=== PATIENT | male | born 1965 | race Hispanic/Latino ===

== ENCOUNTER 2020-10-29 18:26 | Emergency (ER) | payer SELFPAY ==
[2020-10-29 19:30] VITALS: BP 133/76
[2020-10-29] MEDS ORDERED: HYDROcodone/ACETAMINOPHEN 5-325 MG TAB PO ONE ×2 (19:38→23:00)
[2020-10-29] MEDS ORDERED: ONDANSETRON 4 MG ODT TAB PO ONE ×2 (19:38→23:00)
[2020-10-29] MEDS ORDERED: KETOROLAC 10 MG TAB PO ONE ×2 (19:38→23:00)
--- NOTE | 2020-10-29 19:47 | Emergency Department Report ---
ED Male HPI - General Chief complaint: Urogenital-Male Stated complaint: BACK PAIN, PAINFUL URINATION Source: patient Mode of arrival: Ambulatory Limitations: No Limitations - History of Present Illness Initial comments: Patient is a 55-year-old white male with a history of kidney stones who presents to the ED with complaint of acute onset persistent right flank pain that ra diates to the right lower quadrant and right inguinal area for the last 3 days, worse in the last 2 days. Patient states that he has also been having persistent dysuria and urinary frequency and urgency. Patient also complains of diarrhea for the last 3 days. Patient denies hematuria, nausea, vomiting, fever, chills, cough, chest pain or shortness of breath, low back pain, testicular pain or penile discharge. MD Complaint: dysuria, other (Right flank pain) -: Sudden, days(s) (3) Location: penis, right inguinal region, right flank Radiation: other (Right flank and low back) Severity: severe Severity scale (0 -10): 8 Quality: aching, sharp Consistency: constant Improves with: none Worsens with: urination denies other symptoms, dysuria, other (Right flank pain). denies: discharge, swelling, mass, rash, urinary retention, blood in urine, fever, nausea/vomiting, incontinence - Related Data Sexually active: Yes Previous Rx's Medication Instructions Recorded Last Taken Type Ketorolac [Toradol] 10 mg PO Q8H PRN #20 tablet 10/29/20 Unknown Rx Ondansetron [Zofran Odt] 4 mg PO Q6HR PRN #20 tab.rapdis 10/29/20 Unknown Rx Tamsulosin [Flomax] 0.4 mg PO QDAY #10 cap 10/29/20 Unknown Rx levoFLOXacin [Levaquin TAB] 500 mg PO QDAY #10 tablet 10/29/20 Unknown Rx oxyCODONE /ACETAMINOPHEN [Percocet 1 tab PO Q6HR PRN #12 tablet 10/29/20 Unknown Rx 5/325] Allergies Allergy/AdvReac Type Severity Reaction Status Date / Time No Known Allergies Allergy Unverified 10/29/20 19:29 ED Review of Systems ROS: Stated complaint: BACK PAIN, PAINFUL URINATION Other details as noted in HPI Constitutional: denies: chills, fever Eyes: denies: eye pain, eye discharge, vision change ENT: denies: ear pain, throat pain Respiratory: denies: cough, shortness of breath, wheezing Cardiovascular: denies: chest pain, palpitations Endocrine: no symptoms reported Gastrointestinal: abdominal pain (Right flank pain), diarrhea. denies: nausea, vomiting Genitourinary: urgency, dysuria, frequency Musculoskeletal: denies: back pain, joint swelling, arthralgia Skin: denies: rash, lesions Neurological: denies: headache, weakness, paresthesias Psychiatric: denies: anxiety, depression Hematological/Lymphatic: denies: easy bleeding, easy bruising ED Past Medical Hx - Past Medical History Previous Medical History?: Yes Hx Kidney Stones: Yes - Surgical History Past Surgical History?: Yes Additional Surgical History: Left knee ACL, Right shoulder, Lower back - Social History Smoking Status: Never Smoker Substance Use Type: Alcohol - Medications Home Medications: Home Medications Medication Instructions Recorded Confirmed Last Taken Type Ketorolac [Toradol] 10 mg PO Q8H PRN #20 tablet 10/29/20 Unknown Rx Ondansetron [Zofran Odt] 4 mg PO Q6HR PRN #20 tab.rapdis 10/29/20 Unknown Rx Tamsulosin [Flomax] 0.4 mg PO QDAY #10 cap 10/29/20 Unknown Rx levoFLOXacin [Levaquin TAB] 500 mg PO QDAY #10 tablet 10/29/20 Unknown Rx oxyCODONE /ACETAMINOPHEN [Percocet 1 tab PO Q6HR PRN #12 tablet 10/29/20 Unknown Rx 5/325] ED Physical Exam - General Limitations: No Limitations General appearance: alert, in no apparent distress - Head Head exam: Present: atraumatic, normocephalic, normal inspection - Eye Eye exam: Present: normal appearance, PERRL, EOMI Pupils: Present: normal accommodation - ENT ENT exam: Present: normal exam, normal orophraynx, mucous membranes moist, TM's normal bilaterally, normal external ear exam - Neck Neck exam: Present: normal inspection, full ROM - Respiratory Respiratory exam: Present: normal lung sounds bilaterally. Absent: respiratory distress, wheezes, rales, rhonchi, chest wall tenderness, accessory muscle use, decreased breath sounds - Cardiovascular Cardiovascular Exam: Present: regular rate, normal rhythm, normal heart sounds. Absent: systolic murmur, diastolic murmur, rubs, gallop - GI/Abdominal GI/Abdominal exam: Present: soft, tenderness (Palpable right flank tenderness), normal bowel sounds. Absent: guarding, rebound, hyperactive bowel sounds, hypoactive bowel sounds - Extremities Exam Extremities exam: Present: normal inspection, full ROM, normal capillary refill - Back Exam Back exam: Present: normal inspection, full ROM, CVA tenderness (R) (Right CVA tenderness). Absent: tenderness, CVA tenderness (L), muscle spasm, paraspinal tenderness, vertebral tenderness - Neurological Exam Neurological exam: Present: alert, oriented X3, CN II-XII intact, normal gait, reflexes normal - Psychiatric Psychiatric exam: Present: normal affect, normal mood - Skin Skin exam: Present: warm, dry, intact, normal color. Absent: rash ED Course Vital Signs 10/29/20 19:25 Temperature 98.6 F Pulse Rate 74 Respiratory 20 Rate Blood Pressure 133/76 O2 Sat by Pulse 96 Oximetry ED Medical Decision Making - Lab Data Result diagrams: 10/29/20 19:42 10/29/20 19:42 - Radiology Data Radiology results: report reviewed, image reviewed [place] [id number] Cat Scan Report Signed Patient: KRISH STEWART MR#: [id number] : 1965 Acct:[id number] Age/Sex: 55 / M ADM Date: 10/29/20 Loc: ED Attending Dr: Ordering Physician: RUSTY MARTINEZ Date of Service: 10/29/20 Procedure(s): CT abdomen pelvis wo con Accession Number(s): [id number] cc: RUSTY MARTINEZ CT ABDOMEN AND PELVIS WITHOUT CONTRAST INDICATION / CLINICAL INFORMATION: right flank pain. TECHNIQUE: Axial CT images were obtained through the abdomen and pelvis without IV contrast. All CT scans at this location are performed using CT dose reduction for ALARA by means of automated exposure control. COMPARISON: None available. FINDINGS: FINDINGS: LOWER CHEST: No significant abnormality LIVER: Hepatic steatosis. GALLBLADDER/BILIARY TREE: No significant abnormality PANCREAS: No significant abnormality SPLEEN: No significant abnormality ADRENALS: No significant abnormality KIDNEYS / URETER: 2 adjacent stones in the distal right ureter, measuring 5 mm and 3 mm. There is mild right hydronephrosis with asymmetric perinephric and periureteral stranding. There are at least 3 additional punctate stones in the right kidney and 1-2 mm stone in the upper to midpole of the left kidney. No ureteral calculus or hydronephrosis on the left. URINARY BLADDER: No significant abnormality REPRODUCTIVE ORGANS: No significant abnormality STOMACH / BOWEL: No significant abnormality. The appendix is normal in caliber. LYMPH NODES: No significant adenopathy. VASCULATURE: No significant abnormality. OTHER: No free air, free fluid, or focal fluid collection is identified. SKELETAL SYSTEM: No acute osseous findings. IMPRESSION: 1. 2 adjacent distal right ureteral stones, measuring 5 mm and 3 mm, with mild obstructive uropathy. 2. Additional punctate bilateral nephrolithiasis. No ureteral calculus or hydronephrosis on the left. Signer Name: Keesha Vu MD Signed: 10/29/2020 8:39 PM Workstation Name: [id number] Transcribed By: MAGGY Dictated By: KEESHA VU MD Electronically Authenticated By: KEESHA VU MD Signed Date/Time: 10/29/202038 DD/ 35 TD/TT: - Medical Decision Making This is a 55-year-old white male with a history of kidney stones who presents to the ED with complaint of acute onset persistent right flank pain that radiates to the right lower quadrant and right inguinal area for the last 3 days, worse in the last 2 days. Patient states that he has also been having persistent dysuria and urinary frequency and urgency. Patient also complains of diarrhea for the last 3 days. In the ED, patient is alert and oriented x3 and is not in any distress. Patient was treated for pain in the ED and also given antiemetics. Patient is hemodynamically stable. Lab test results were reviewed and are all nonactionable except for urinalysis that showed urinary tract infection with a positive nitrites. There is however no blood noticeable in urinalysis. The abdomen pelvis CT scan without contrast showed 2 adjacent distal right ureteral stones, measuring 5 mm and 3 mm, with mild obstructive uropathy. Additional punctate bilateral nephrolithiasis. No ureteral calculus or hydronephrosis on the left. On reevaluation, patient's pain is well controlled medications. Patient was discharged home on medications including antibiotics and pain medications and was advised to follow-up with his urologist in 5 to 7 days for reevaluation. Patient was advised return to the ED immediately if symptoms get worse. - Differential Diagnosis Kidney stones; UTI; pyelonephritis; appendicitis Critical care attestation.: If time is entered above; I have spent that time in minutes in the direct care of this critically ill patient, excluding procedure time. ED Disposition Clinical Impression: Acute abdominal pain in right flank, Dysuria, Acute urinary tract infection, Kidney stone on right side Disposition: TO HOME OR SELFCARE Is pt being admited?: No Does the pt Need Aspirin: No Condition: Stable Instructions: Kidney Stones, [id number], Flank Pain, Adult, [id number], Abdominal Pain, Adult, [id number], Urinary Tract Infection, Adult, [id number] Additional Instructions: All lab test results were reviewed and are all nonactionable except for urinalysis that showed significant urinary tract infection. The abdomen pelvis CT scan without contrast showed 2 adjacent distal right ureteral stones, measuring 5 mm and 3 mm, with mild obstructive uropathy. There are no kidney stones on the left kidney. Therefore take medications with food, drink plenty of fluids and follow-up with your primary care physician or urologist in 5 to 7 days for reevaluation. Return to the ED immediately if symptoms get worse. Prescriptions: Tamsulosin [Flomax] 0.4 mg PO QDAY #10 cap levoFLOXacin [Levaquin TAB] 500 mg PO QDAY #10 tablet oxyCODONE /ACETAMINOPHEN [Percocet 5/325] 1 tab PO Q6HR PRN #12 tablet PRN Reason: Pain Ketorolac [Toradol] 10 mg PO Q8H PRN #20 tablet PRN Reason: Pain Ondansetron [Zofran Odt] 4 mg PO Q6HR PRN #20 tab.rapdis PRN Reason: Nausea Referrals: ALEISHA MOULTON MD [Staff Physician] - 3-5 Days Time of Disposition: 21:37 Print Language: LAO
[2020-10-29 20:02] LABS: Basophils % (Auto) 0.5 % (0.0-1.8); Eosinophils # (Auto) 0.2 K/mm3 (0.0-0.4); Eosinophils % (Auto) 2.3 % (0.0-4.3); Hematocrit 42.4 % (35.5-45.6); Hemoglobin 14.2 gm/dl (11.8-15.2); Lymphocytes # (Auto) 1.3 K/mm3 (1.2-5.4); Lymphocytes % (Auto) 14.6 % (13.4-35.0); Mean Corpuscular HGB Conc 34 % (32-34); Mean Corpuscular Volume 88 fl (84-94); Monocytes # (Auto) 0.8 K/mm3 (0.0-0.8); Monocytes % (Auto) 8.7 % (0.0-7.3); Platelet Count 178 K/mm3 (140-440); Red Blood Count 4.82 M/mm3 (3.65-5.03); Red Cell Distribution Width 13.8 % (13.2-15.2)
[2020-10-29 20:05] LABS: Bacteria,Urine 1+ /HPF (Negative); Bilirubin,Urine NEG (Negative); Blood,Urine SM (Negative); Color,Urine Amber (Yellow); Mucus,Urine FEW /HPF; Protein,Urine <15 mg/dL mg/dL (Negative)
[2020-10-29 20:23] LABS: Albumin 4.2 g/dL (3.9-5); Calcium 9.1 mg/dL (8.4-10.2)
[2020-10-29] MEDS ORDERED: levoFLOXacin 500 MG TAB PO ONE (20:34)
--- NOTE | 2020-10-29 20:43 | Cat Scan Report ---
CT ABDOMEN AND PELVIS WITHOUT CONTRAST INDICATION / CLINICAL INFORMATION: right flank pain. TECHNIQUE: Axial CT images were obtained through the abdomen and pelvis without IV contrast. All CT scans at this location are performed using CT dose reduction for ALARA by means of automated exposure control. COMPARISON: None available. FINDINGS: FINDINGS: LOWER CHEST: No significant abnormality LIVER: Hepatic steatosis. GALLBLADDER/BILIARY TREE: No significant abnormality PANCREAS: No significant abnormality SPLEEN: No significant abnormality ADRENALS: No significant abnormality KIDNEYS / URETER: 2 adjacent stones in the distal right ureter, measuring 5 mm and 3 mm. There is mil d right hydronephrosis with asymmetric perinephric and periureteral stranding. There are at least 3 a dditional punctate stones in the right kidney and 1-2 mm stone in the upper to midpole of the left ki dney. No ureteral calculus or hydronephrosis on the left. URINARY BLADDER: No significant abnormality REPRODUCTIVE ORGANS: No significant abnormality STOMACH / BOWEL: No significant abnormality. The appendix is normal in caliber. LYMPH NODES: No significant adenopathy. VASCULATURE: No significant abnormality. OTHER: No free air, free fluid, or focal fluid collection is identified. SKELETAL SYSTEM: No acute osseous findings. IMPRESSION: 1. 2 adjacent distal right ureteral stones, measuring 5 mm and 3 mm, with mild obstructive uropathy. 2. Additional punctate bilateral nephrolithiasis. No ureteral calculus or hydronephrosis on the left . Signer Name: Magdy Vu MD Signed: 10/29/2020 8:39 PM Workstation Name: [id number]
== END 2020-10-29 23:06 | disposition home or self-care (01) ==
LOC: ED 18:26
DX: N39.0 Urinary tract infection, site not specified (principal); N20.0 Calculus of kidney; R30.0 Dysuria; R10.31 Right lower quadrant pain; Z79.899 Other long term (current) drug therapy; Z98.890 Other specified postprocedural states
CPT/HCPCS: 36415; 74176; 80053; 81001; 83690; 85025; Q0162